=== PATIENT | female | born 1995 | race Caucasian/White ===

== ENCOUNTER 2019-07-08 22:47 | Emergency (ER) | payer SELFPAY ==
[~2019-07-08] VITALS: Ht 157.5 cm; Wt 45.4 kg
--- NOTE | 2019-07-08 22:50 | NUR ---
Pt walked w/steady gait to ER c/o pain w/urination for past 2 days. pt is A/Ox4 , speaks in complete sentences, clear speech, no neuro deficit. Respiratory even and unlabored, no cough,sob,no use of accessory muscles. Denies any GI symptoms, no n/v/d. Bed at lowest level, side rails upx2, call light w/in reach, fall precautions implemented per policy.
[2019-07-08] MEDS ORDERED: CEFTRIAXONE 1 G VIAL ONE (23:05)
[2019-07-08 23:08] LABS: *BILIRUBIN,URIN NEGATIVE (NEGATIVE); *BLOOD, URINE 3+ (NEGATIVE); *KETONES,URINE NEGATIVE (NEGATIVE); *UROBILINOGEN,URINE 0.2 E.U./dl (NORMAL); LEUKOCYTE ESTERASE ,URINE 2+ (NEGATIVE); NITRITE, URINE NEGATIVE (NEGATIVE); PH,URINE 7.5 (5.0-8.0); UGLUCOSE NEGATIVE (NEGATIVE)
[2019-07-08 23:09] LABS: *CLARITY,URINE HAZY (CLEAR)
[2019-07-08 23:10] LABS: *COLOR,URINE PINK (YELLOW); *URINE HCG, QUAL NEGATIVE (NEGATIVE)
[2019-07-08 23:12] LABS: BACTERIA,URINE MANY /HPF (NONE SEEN); SQUAMOUS EPITHELIAL CELL,UR MODERATE /HPF (NONE SEEN); WBC,URINE 80-100 /HPF (0-3)
[2019-07-08] MEDS ORDERED: CEFTRIAXONE 1 G VIAL IM ONE (23:15)
--- NOTE | 2019-07-08 23:42 | NUR ---
Patient discharged to home in stable conditon walking w/steady gait. Written and verbal after care instructions given. Patient verbalizes understanding of instructions.
[2019-07-08 23:55] VITALS: BP 105/73
== END 2019-07-08 23:42 | disposition home or self-care (01) ==
LOC: ER 22:47
DX: N39.0 Urinary tract infection, site not specified (principal)
CPT/HCPCS: 81000; 81001; 84703; 87077; 87086; 87186; 96372; 99283; J0696; A4663